=== PATIENT | female | born 1930 | race African-American/Black ===

== ENCOUNTER 2018-12-31 18:37 | Inpatient (IN) | payer OTHER ==
[~2018-12-31] VITALS: Ht 162.6 cm; Wt 61.4 kg
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
[2018-12-31 18:54] VITALS: BP 178/76
[2018-12-31 20:04] LABS: ABSOLUTE NEUTROPHILS 4.2 thou/uL (1.4-8.2); BASOPHILS 0.7 % (0.0-2.0); EOSINOPHILS 1.7 % (0.0-3.0); HEMATOCRIT 40.8 % (37.0-47.0); HEMOGLOBIN 13.2 gm/dL (12.0-15.0); LYMPHOCYTES 21.3 % (24.0-44.0); MCHC 32.3 g/dL (28.0-37.0); MCV 89.9 fL (80.0-100.0); MONOCYTES 9.5 % (1.0-8.0); POLYS 66.8 % (36.0-66.0); RBC 4.54 mil/uL (4.20-5.00); RDW 14.5 % (10.5-14.5); WBC 6.3 thou/uL (4.0-11.0)
[2018-12-31 20:14] LABS: ANION GAP 9 mmol/L (7-16); BUN 23 mg/dL (7-18); CALCIUM 9.3 mg/dL (8.5-10.1); CHLORIDE 107 mmol/L (98-107); CO2 27 mmol/L (21-32); CREATININE 0.8 mg/dL (0.6-1.0); GLUCOSE 93 mg/dL (74-106); POTASSIUM 4.3 mmol/L (3.5-5.1); SODIUM 143 mmol/L (136-145)
[2018-12-31 20:27] LABS: ALBUMIN 3.1 g/dL (3.4-5.0); TOTAL BILIRUBIN 0.6 mg/dL (<0.1-1.0); TOTAL PROTEIN 6.3 g/dL (6.4-8.2)
[2018-12-31 20:35] LABS: URINE BILIRUBIN NEGATIVE (Negative); URINE BLOOD 2+ (Negative); URINE CLARITY CLEAR; URINE COLOR YELLOW; URINE GLUCOSE-RANDOM* NEGATIVE (Negative); URINE KETONES NEGATIVE (Negative); URINE NITRITE-REFLEX NEGATIVE (Negative); URINE PROTEIN (DIPSTICK) NEGATIVE (Negative); URINE SPECIFIC GRAVITY 1.015 (1.005-1.035); URINE UROBILINOGEN 0.2 E.U./dl (0.2-1.0)
[2018-12-31 20:39] LABS: MAGNESIUM 1.6 mg/dL (1.8-2.4); SGOT 12 U/L (15-37); SGPT 13 U/L (30-65)
[2018-12-31 20:47] LABS: TROPONIN-I <0.06 ng/mL (<0.06)
[2018-12-31 20:54] LABS: LARGE PLATELETS FEW; PLATELET COUNT 131 thou/uL (150-400); PLATELET ESTIMATE DECREASED
[2018-12-31 21:01] LABS: URINE LEUKOCYTES-REFLEX 2+ (Negative)
[2018-12-31 21:31] LABS: SQUAMOUS 0-3 Few /LPF (0-3); URINE WBC-REFLEX 6-15 Few /HPF (0-5)
[2018-12-31 21:32] LABS: AMORPHOUS URATES Few /LPF (None Seen); BACTERIA-REFLEX >30 Many /HPF (None Seen); CASTS None Seen /LPF (None Seen); CRYSTALS None Seen /LPF (None Seen); MUCUS 0-3 Light strn/LPF (None Seen); URINE RBC 3-10 Few /HPF (0-2)
[2018-12-31] MEDS ORDERED: LAMICTAL100 MG PO (21:35)
[2018-12-31] MEDS ORDERED: COZAAR 25 MG TA25 M1 PO (21:35)
[2018-12-31] MEDS ORDERED: MELATONIN5 M1 PO (21:36)
[2018-12-31] MEDS ORDERED: NAMENDA 10 MG T10 MG PO (21:36)
[2018-12-31] MEDS ORDERED: REMERON15 MG PO (21:37)
[2018-12-31] MEDS ORDERED: RISPERIDONE 00.25 M1 PO (21:37)
[2018-12-31] MEDS ORDERED: LOPERAMIDE 2 MG2 M1 PO (21:39)
[2018-12-31] MEDS ORDERED: VITAMIN D5000 UNIT PO (21:39)
[2018-12-31] MEDS ORDERED: ACIDOPHILUS1 EAC4 PO (21:40)
[2018-12-31] MEDS ORDERED: EAR WAX REMOVAL15 ML OT (21:42)
[2018-12-31 23:25] VITALS: BP 179/85
[2018-12-31 23:50] VITALS: BP 197/104
[2019-01-01 01:15] VITALS: BP 152/81
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
--- NOTE | 2019-01-01 03:05 | NUR ---
The pt. was noted clapping her hands in her room. She was sitting on the side of the bed, and asked and she said she had to go to the bathroom. She was noted weak, unsteady, going to the bathroom. The walker was placed in front of her and she did not use it walking around it. She walks unsteady, slow, with weakness. Gait belt used with assist of 1. When helping with her clothing, she was continent of urine (cloudy urine observed), she notably was scared of the environment and staff with her confusion (swinging towards staff initially), and slow assistance/explanation was provided and she was compliant with assistance and back to bed with assistance as well. She scored 65 on Fall Risk scale so chair alarm and yellow shirt will be used.
[2019-01-01 07:15] VITALS: BP 138/59
--- NOTE | 2019-01-01 07:51 | EKG ---
[place] [address] [facility] [place] [address] ELECTROCARDIOGRAM REPORT Name: FABRIZIO HERRERA Room #: [facility]- ADM IN M.R.#: [id number] Admission: 12/31/18 Attend Phys: Red Neely DO Discharge: Date of : [birth year] Report #: [id number] THIS REPORT FOR: //name// [facility] ED Test Date: 2018-12-31 Test Time: 19:20:15 Pat Name: FABRIZIO HERRERA Department: Room: [facility] Gender: F Yarn Sizer: MOLLY : 1930 Requested By: Boaz Carcamo Order Number: [id number] MD: Maynor Espitia Measurements Intervals [place] Rate: 65 P: -2 SD: 170 QRS: 34 QRSD: 96 T: 30 QT: 417 QTc: 434 Interpretive Statements Sinus rhythm Normal tracing No previous ECG available for comparison Electronically Signed On 01-01-2019 7:51:47 CDT by Maynor Espitia [email or web address] <ELECTRONICALLY SIGNED> By: Maynor Espitia MD, [facility] 01/01/19 0751 192 19 Maynor Espitia MD, FACC /EPI
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
--- NOTE | 2019-01-01 16:57 | NUR ---
OBSERVED TO BE VERY RESTLESS THIS AM-FIDGETING IN CHAIR-STOOD UP OUT OF WHEELCHAIR TRIGGERING ALARM. DIFFICULT TO REDIRECT APPEARS HAVE DIFFICULTY PROCESSIN INSTRUCTION/REASSURANCE AND REORIENTATION PROVIDED BY STAFF. MINIMALLY VERBAL WHEN ASKED QUESTIONS WILL STATE YES OR NO BUT OFFERS NO OTHER SIGNIFICANT RESPONSE. HYPERVIGILANT WATCHING STAFF AND [facility] [place] AND WILL PULL AWAY IF FEARFUL DURING AM PHYSICAL ASSESSMENT. REQUIRES SBA OF 1 STAFF GAIT IS NOTED TO BE UNSTEADY-DI ATTEND AM EXERCISE GROUP AND OBSERVED PEERS-AT 0945 CIGARETTE PACKING MACHINE OPERATOR IN DAYROOM WITHIN APPROX 10FEET OF PT ASSISTING A PEER WHEN SHE REPORTS FINDING PT SITTING ON FLOOR NEXT TO WC-PT UNABLE OR UNWILLING TO STATE WHAT HAPPENED. CHAIR ALARM DID SOUND-NO NOISE OR THUD OF ANY KIND HEARD BY CIGARETTE PACKING MACHINE OPERATOR-PT DENIES PAIN/DISCOMFORT -VS OBTAINED AND BP 131/74-P78. COCYX ,LOW BACK AREA ASSESSED AND NO NOTED REDNESS,ABRASIONS,BRUISING NOTED. ABLE TO MOVE ALL EXTREMETIES WITHOUT DISCOMFORT. IMMEDIATLY UPON SITTING BACK IN WC TRIED TO GET UP AGAIN-DR MARTINEZ CONTACTED-O RECEIVED AND LAP MICHAEL APPLIED. PT REMOVED LAP MICHAEL SEVERAL TIMES -MESSAGE LEFT FOR DAUGHTER/DPOA JAIME AND RETURN CALL RECEIVED AT APPROX 1200-INFORMED OF ABOVE-DAUGHTER REQUESTING PT BE [id number] TO AMBULATE ON OWN-DOES NOT WANT PRN SEOQUEL GIVEN-DR MARTINEZ CONTACTED OF DPOA CONCERN-ORDERS RECEIVED FOR CONSTANT OBSERVATION WHILE AWAKE
[2019-01-01 18:56] VITALS: BP 156/90
--- NOTE | 2019-01-01 19:48 | NUR ---
ORDER RECEIVED FOR CONSTANT OBSERVATION RECEIVED BY Avery SERRANO AT [id number] BEEN MONITORED 1;1 SINCE THIS TIME FOR CONTINUED RESTLESSNESS,POOR IMPULSE CONTROL AND REPEATED EFFORTS TO CRAWL OUT OF CHAIR,BED ETC. REMOVING LAB BELT AND AT ONE POINT OBSERVED TO BE CRAWLING UNDERNEATH IT -PUTTING LEGS OF SIDE OF CHAIR AND TIPPING CHAIR BACKWARDS-TOILETING Q 1-2 HOURS DOES BECOME PHYSICALLY AGGRESSIVE WITH TOILETING PINCHING ARM OF NURSING STAFF HARD ENOUGH TO BREAK SKIN. NO NOTED FACIAL GRIMACING,MOANING ETC TO INDICATE PHYSICAL PAIN AND DENIES IT WHEN QUESTIONED. MINIMAL RESPONSE TO REPEATED EFFORTS TO REASSURE/REORIENT. TAKES PO FLUIDS WITH ENCOURAGEMNT AND FLUIDS OFFERED FREQUENTLY
--- NOTE | 2019-01-01 22:34 | NUR ---
ASSUMED CARE OF THE PT AT 1914 PM. ALERT ET ORIENTED X 2. MAKES NEEDS KNOWN. THE PT HAS BEEN HITTING AT STAFF, KICKING AT STAFF, BIT STAFF. CONTINUALLY TRYING TO CLIMB OUT OF THE BED. CALLED THE N.P. WHO WAS AIRPLANE PATROLLER AND RECEIEVED AN ORDER FOR ZYPREXA 2.5 MG IM, WHICH WAS GIVEN ORDERED. THE PT WAS ASSISTED TO BED, CONTINUES TO TRY TO GET OUT OF BED, SHE WAS ASSISTED BACK UP INTO THE WHEELCHAIR, BROUGHT OUT TO THE DAYROOM. REMAINS A 1:1 WHILE AWAKE.
--- NOTE | 2019-01-02 03:01 | NUR ---
THE PT WAS LAID DOWN IN BED AND SHE FELL ASLEEP AT THAT TIME, WHICH WAS DONE AT 1;15 AM. BED ALARM WAS TURNED ON. RESP., EVEN, AND UNLABORED. DENIED ANY PAIN EARLIER IN THE SHIFT. REMAINS ON 12 MINUTE CHECKS FOR HER SAFETY.
--- NOTE | 2019-01-02 10:19 | NUR ---
HAS BEEN UP WITH 1:1 SITTER SINCE ABOUT 0900, SHE IS IN W/C, SHE IS CALM AND COOPERATIVE WITH MEAL, SHE WAS FED BY SITTER SHE WOULD NOT EAT. MNEDICATIONS CRUSHED AND PLACED IN PUDDING SHE SOON SPIT THEM OUT INTO A [place], SHE DOES NOT APPEAR RESTLESS THIS A.M. AND HAS BEEN COOPERATIVE WITH CARES THIS A.M., CONTINUE TO MONITOR AND ASSIST WITH 1:1 OBSERVATION FOR SAFETY AND CARE.
[2019-01-02 10:39] VITALS: BP 183/87
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
[2019-01-02 19:21] VITALS: BP 153/91
--- NOTE | 2019-01-03 02:40 | NUR ---
ASSUMED CARE OF PATIENT AT APPROXIMATELY 1915, THIS RN HAD VERY LITTLE INTERACTION WITH PATIENT, RIGHT AFTER SHIFT CHANGE THIS NURSE DID A RAPID ASSESSMENT OF PATIENT SHE WAS REQUESTING TO GO TO BED. ONE TO ONE SITTER WAS WITH PATIENT AT ALL TIMES. WHEN THIS RN WAS ADMINISTERING MEDICATIONS SHE DID OPEN EYES TO MY VOICE AND WAS COOPERATIVE WITH MEDICATION ADMIN. SHE SPOKE 3-4 LINES OF SPEECH, THAT WAS WORD SALAD LIKE, AND NOT SENSICAL. BLE EDEMA OBSERVED, NO S/S OF ACUTE DISTRESS. PATIENT DID NOT VERBALIZE PAIN. NURSING WILL MAINTAIN ALL PRECAUTIONS TO ENSURE SAFETY AND KEEP PATIENT ON ONE TO ONE WHILE AWAKE ORDERED.
[2019-01-03 08:04] VITALS: BP 104/48
--- NOTE | 2019-01-03 10:20 | NUR ---
UP IN W/C SHE IS ALERT BUT CONFUSED SHE IS ORIENTED TO HER NAME ONLY, SHE IS CALM THIS A.M. AND HAS 1:1 SITTER WITH HER, SHE IS SOMEWHAT DROWSY, SHE WAS BEING FED HER MEAL BUT ATE POORLY FOR BREAKFAST, SHE SPEAKS WITH WORD SALAD, SHE DID TAKE HER MEDICATION THIS MORNING WITH ICE CREAM. CALL PLACED TO FOR UA RESULTS. IGNACIA TO MONITOR FOR BEHAVIORS AND SAFETY, REMIANS ON 1:1 FOR SAFETY.
--- NOTE | 2019-01-03 14:56 | NUR ---
1455: Dr. Marinelli notified of UA results/culture results. to initiate ABT order.
[2019-01-03 20:05] VITALS: BP 138/55
--- NOTE | 2019-01-04 00:23 | NUR ---
ASSUMED CARE AT 1915, PATIENT IS ALERT AND ORIENTED X1-2. THIS NURSE HAS HAD SMALL INTERACTIONS WITH PATIENT PATIENT WAS REQUESTING TO GO TO BED AT TIME OF SHIFT CHANGE. DURING THIS BRIEF INTERACTION MEDS WERE GIVEN WITH APPLESAUCE THAT PATIENT TOOK WITH NO ISSUES. SHE STATED 'IM DOING GOOD' WHEN ASKED. EYES CLOSED AND PATIENT TURNED THE OTHER DIRECTION. THIS NURSE CONCLUDED ONE TO ONE CONVERSATION. PT. DID HOWEVER LET THIS RN PHYSICALLY ASSESS PATIENT. NURSING WILL MAINTAIN ALL PRECAUTIONS TO ENSURE SAFETY AT ALL TIMES.
[2019-01-04 07:33] VITALS: BP 110/54
[2019-01-04 08:00] VITALS: BP 110/54
--- NOTE | 2019-01-04 08:59 | NUR ---
ATTEMPTING TO GIVE PT HER MEDICATION CRUSHED, PT SPIT OUT MED AND SAID IT TASTED BAD.
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
--- NOTE | 2019-01-04 11:30 | NUR ---
PT STATED SHE WILL TAKE MEDS IN APPLESAUCE NEXT TIME.
--- NOTE | 2019-01-04 11:32 | NUR ---
ADM HALDOL 3MG IM TO LEFT DELTOID DUE TO REFUSING RISPIRADOL PER DR. SINHA.
[2019-01-04 17:32] VITALS: BP 177/106
--- NOTE | 2019-01-04 17:32 | NUR ---
PT DIDN'T WANT TO TAKE PUDDING WITH BP MED IN IT. PT STATED SHE WOULD GET SICK IF SHE TOOK IT. PT DID TAKE MED.
[2019-01-04 19:30] VITALS: BP 119/58
--- NOTE | 2019-01-05 03:33 | NUR ---
UP IN DAY ROOM. REPORTED THAT SHE WAS AGRESSIVE TODAY. CONFUSED BUT COOPERATIVE WITH STAFF. 1:1 WHILE AWAKE. TOOK HS MEDS WITH CHOCOLATE ICE CREAM, W/O PROBLEM. SETTLED INTO BED AND HAS SLEPT WELL TO THIS POINT.
[2019-01-05 07:37] VITALS: BP 146/78
[2019-01-05 12:31] LABS: URINE BILIRUBIN NEGATIVE (Negative); URINE BLOOD 2+ (Negative); URINE CLARITY CLEAR; URINE COLOR YELLOW; URINE GLUCOSE-RANDOM* NEGATIVE (Negative); URINE KETONES NEGATIVE (Negative); URINE NITRITE-REFLEX NEGATIVE (Negative); URINE PROTEIN (DIPSTICK) NEGATIVE (Negative); URINE SPECIFIC GRAVITY 1.015 (1.005-1.035)
[2019-01-05 12:33] LABS: URINE LEUKOCYTES-REFLEX 2+ (Negative)
[2019-01-05 13:01] LABS: CASTS None Seen /LPF (None Seen); CRYSTALS None Seen /LPF (None Seen); SQUAMOUS >10 Many /LPF (0-3)
[2019-01-05 13:03] LABS: BACTERIA-REFLEX 1-9 Few /HPF (None Seen); URINE RBC 3-10 Few /HPF (0-2); URINE WBC-REFLEX 6-15 Few /HPF (0-5)
--- NOTE | 2019-01-05 14:09 | NUR ---
HAS BEEN ON 1;1 OBSERVATION SO FAR THIS SHIFT FOR CONTINUED UNSTEADY GAIT,RESTLESSNESS, IMPULSIVE BEHAVIOR AND RECENT HISTORY OF FALLS. MINIMAL VERBAL RESPONSES DURING AM ASSESSMENT AND 1;1 INTERACTION WITH THIS RN. SPEECH IS SOFT,MUMBLED AND DIFFICULT TO UNDERSTAND-WILL RESPOND YES OR NO-ORIENTED TO NAME ONLY. DOES REQUIRE ASSIST IN EATING FROM 1;1 STAFF SHE WAS ATTEMPTING TO EAT HER MASHED POTATOES WITH FINGERS. DID TELL STAFF THAT SHE HAD TO URINATE AND HAS BEEN CONTINENT SO FAR THIS SHIFT-UA COLLECTED PER MD ORDER AND SENT TO LAB. BP 146/78 PRIOR TO AM MEDS-TAKES MEDS CRUSHED IN ICE CREAM. CLONIDINE PATCH APPLIED PER ORDER. AMBULATES LONG DISTANCES IN HALLWAY WITH SBA X1 AND ROLLER WALKER-IS FORWARD LEANING AND BENT AT THE WAIST WHEN AMBULATING.
--- NOTE | 2019-01-05 18:09 | NUR ---
ORDER RECEIVED TO STRAIGHT CATH FOR URINE CULTURE-COMPLETED AT APPROX 1700 PT WAS AGITATED DURING CATH PROCESS AND DOES C/O "BOTTOM HURTING" IMMEDIATLY AFTER CATH PERFORMED. TYLENOL 625MG GIVEN PO PRN FOR ABOVE REPORTED AND DID APPEAR MORE COMFORTABLE APPROX 45 MIN AFTER RECEING. 2+ PEDAL EDEMA NOTED IN FEET BILAT-IS NOT WARM TO TOUCH-PT DENIES PAIN TO EXTREMETIES. ATTEMPTED TO LAY DOWN X2 THIS PM -RESTLESS-CLIMBING OVER RAILS OF BED AND WILL NOT REMAIN IN BED-BROUGHT TO DAYROOM AND DOES APPEAR CALMER. ATTEMPTED TO ELEVATE FEET IN RECLINER BUT PT BECAME MORE RESTLESS/AGITATED WHEN PLACED IN RECLINING POSITION. FOLLOW UP BP AT 1700 159/79-PM LOSARTAN GIVEN CRUSHED IN ICE CREAM. DID VOID APPROX 150 CC PRIOR TO CATH FOR SPECIMIN COLLECTION-BLADDER EMPTIED AND ONLY 50 CC RESIDUAL NOTED.
[2019-01-05 18:21] VITALS: BP 148/78
[2019-01-05 19:32] VITALS: BP 157/92
--- NOTE | 2019-01-05 19:39 | NUR ---
[facility]ARE @ 19:15. ALERT, IN W/C ORIENTED TO SELF ONLY. COOPERATED WITH ASSESSMENT, HRRR, LUNGS CTA, ABD BS [id number]. TALKS TO PEERS AND STAFF, BUT THOUGHTS AND SPEACH ARE DISORGANIZED AND RANDOM. WILL CONTINUE TO MONITOR. Q 12 MINUTES FOR PATIENT SAFETY.
--- NOTE | 2019-01-05 22:21 | NUR ---
PATIENT TRANSFERRED FROM W/C TO BED X2 ASSIST. PATIENT RESISTED CARE. ASKED REPEATEDLY ABOUT HER DAUGHTER. REMINDED THAT HER DAUGHTER HAD BEEN HERE VISITING THIS EVENING, AND SHE AGREED THAT SHE REMEMBERED SEEING DAUGHTER. IN BED SLEEPING, EYES CLOSED, RESPIRATIONS EVEN AND UNLABORED. WILL CONTINUE TO MONITOR Q 12 MINUTES FOR PATIENT SAFETY. BED IN LOW POSITION, BED ALARM SET.
[2019-01-06 00:17] VITALS: BP 157/92
--- NOTE | 2019-01-06 06:02 | NUR ---
SLEPT 8.4 HOURS OVERNIGHT
--- NOTE | 2019-01-06 06:38 | NUR ---
BLADDER SCAN 192 @ 0530. URINATED 200CC @ 06:30
[2019-01-06 09:32] VITALS: BP 193/89
--- NOTE | 2019-01-06 14:46 | NUR ---
RESTLESS AT TIMES THROUGHOUT SHIFT CALLING OUT FOR HELP AND ATTEMPTING TO GET UP-HAS HAD FREQUENT POSITION CHANGES GOING FROM WHEELCHAIR WITH LAP MICHAEL TO RECLINBER TO COUCH IN DAYROOM. USING ROLLER WALKER ANMD SBA X1 TO GET TO AND FROM BR AND HAS REMAINED CXONTINENT [id number] SHIFT. POST VOID BLADDER SCAN COMPETED AT 1130 AND APPROX 70 CC IN BLADDER VIA SCAN. [id number] GIVENPO PRN AT 1300 FOR REPORTED CO PAIN "ALL OVER" DOES TAKE MEDS CRUSHED IN ICE CREAM. ENJOYED SINGING NURSERY [employer] SONGS WITH STAFF AND DID SHOW SOME [place]ES SMILING/CONVERAation DURING THIS INTERACTION. OTHERWISE AFFFECT HAS BEEN FLAT AnD WILL RESPOND MINIMALLY TO YES/NO QUESTIONS. ORIENTED TO NAME ONLY-REQUIRES ASSIST TO STAFF TO FEED SELF BUTY APPETITE GOOD
--- NOTE | 2019-01-06 18:09 | NUR ---
ORINENTED TO NAME ONLY PLEASANT AND COOPERTIVE. DENIES PAIN. GOOD APPETITE FOR DINNER, ATE DINNER IN DINNING ROOM.
[2019-01-06 19:26] VITALS: BP 155/97
[2019-01-06 23:33] VITALS: BP 144/80
--- NOTE | 2019-01-07 04:28 | NUR ---
PATIENT UP IN DINING ROOM TILL BEDTIME TONIGHT. SHE SAT IN HER WC WITH CHAIR ALARM ON. SHE SAT AWAY AT A TABLE VISITING WITH A [employer]ELOP[employer] CONSULTANT. UNORGANIZED THOUGHTS. PLEASANT, SMILING, COOPERATIVE, WITH TENDANCY TO BE PARANOID AT TIMES OF OTHERS INTENTIONS. PATIENT TOOK MEDS AND WAS IN BED AROUND 2100. AT 0400 PATIENT BEGAN SITTING UP IN BED AND LOOKING IF SHE WAS TRYING TO GET OUT. E[employer] INDUSTRI[employer] DEVELOPMENT CONSULTANT AND MYSELF WENT TO TRY AND TOILET HER AND SHE BECAME COMBATIVE. PATIENT BRIEF STILL ON IN PLACE AND DRY. WORKED WITH HER FOR 20 MINUTES TO TRY AND GET HER TO BSC WITHOUT SUCCESS. UNABLE TO BLADDER SCAN HER D/T BECOMES COMBATIVE. PATIENT DID LAY BACK DOWN WITHOUT A FIGHT AND WENT BACK TO SLEEP. BED ALARM ON AND BED IN LOW POSITION. WILL TRY A LITTLE LATER TO GET HER UP TO TOILET. OVERALL, SHE HAS SLEPT SOUND ALL NIGHT.
[2019-01-07 08:33] VITALS: BP 145/74
--- NOTE | 2019-01-07 11:10 | NUR ---
0700: Report rec from noc shift, care assumed.
[2019-01-07 20:09] VITALS: BP 150/86
--- NOTE | 2019-01-08 04:23 | NUR ---
ASSUMED CARE OF PATIENT AT APPROXIMATELY 1915, UPON INTERACTION WITH PATIENT SHE WAS OUT IN THE DAY ROOM, WITH A NEAT APPEARANCE INTERACTING WITH STAFF. SHE APPEARED WITH A EUTHYMIC AFFECT AND LABILE MOOD. THIS NURSE HAD MINIMAL INTERACTIONS WITH PATIENT SHE WAS ABLE TO TELL ME SHE WAS 'GOOD.' SHE TOOK ALL MEDS CRUSED IN CHOCOLATE ICE CREAM. SHE RETIRED TO HER BED EARLY AND DOES NOT APPEAR TO BE IN DISTRESS. NURSING WILL MAINTAIN ALL PRECAUTIONS TO ENSURE SAFETY AT ALL TIMES.
[2019-01-08 08:54] VITALS: BP 142/81
--- NOTE | 2019-01-08 08:54 | NUR ---
0715: Report rec from noc shift, care assumed. 0730: Sitting in DR in w/c, alert, oriented to name only. Staff assisted with a.m. meal, pt observed playing in food when instructed to eat meal, appetite fair. Takes meds crushed in pudding, resistant to taking meds, drinks regular fluids w/o difficulty. Lap ella in place for safety and to remind pt to not stand w/o assistance.
--- NOTE | 2019-01-08 10:50 | NUR ---
Nutrition: pt admitted with major neurocognitive disorder, depression, dementia. Seen for LOS. Attempted interview, pt very confused. No weight hx. Two weights taken around time of admit, 122# and 135#. Pt eats well with nsg feeding her, requires much cueing. 75-100% of meals recently recorded. Nsg requests ensure be offered, will add BID. Carb controlled diet ordered but no hx of DM and not checking BG levels. Liberalize diet to regular. On vitamin D supplementation. Place pt as low nutrition risk.
[2019-01-08 21:49] VITALS: BP 162/99
--- NOTE | 2019-01-08 23:25 | NUR ---
ASSUMED CARE OF THE PT AT 1914 PM. ALERT ET ORIENTED X 2. THE PT WAS SITTING IN A WHEELCHAIR WHEN THIS LOGISTICIAN CAME ON DUTY. HEART RATE REGULAR. LUNGS CLEAR BILATERALLY. +BS HEARD IN ALL 4 QUADRANTS. ABD SOFT ET NONTENDOR. +PP BILATERALLY. HER DAUGHTER WAS HERE WHEN THIS LOGISTICIAN FIRST CAME ON DUTY. IT TAKES THE ASSISTANCE OF 2 TO PUT HER IN BED, SHE TRIES TO HIT AND SCRATCH PEOPLE. REMAINS ON 12 MINUTE CHECKS FOR THE PT'S SAFETY.
[2019-01-09 07:20] VITALS: BP 145/76
[2019-01-09 08:51] LABS: HEMATOCRIT 44.7 % (37.0-47.0); HEMOGLOBIN 14.1 gm/dL (12.0-15.0); MCH 28.5 pg (26.0-34.0); MCHC 31.5 g/dL (28.0-37.0); MCV 90.5 fL (80.0-100.0); RBC 4.93 mil/uL (4.20-5.00); RDW 14.5 % (10.5-14.5); WBC 4.6 thou/uL (4.0-11.0)
[2019-01-09 09:04] LABS: CALCIUM 9.5 mg/dL (8.5-10.1); CREATININE 0.8 mg/dL (0.6-1.0); POTASSIUM 4.2 mmol/L (3.5-5.1)
--- NOTE | 2019-01-09 14:06 | NUR ---
HAS BEEN VISIBLE IN DAYROOM WITH PEERS THROUGHOUT SHIFT- APPEARS LESS ANXIOUS COMPARED TO EARLIER IN WEEK(FRIDAY,FRIDAY) EVIDENCED BY BEING ABLE TO SIT FOR LONGER PERIODS OF TIME TO DO ACTIVITY,OR FINISH MEAL. REMAINS MINIMALLY VERBAL-ORIENTED TO NAME ONLY. DENIES PAIN/DISCOMFORT. COMPLIENT WITH TAKING MEDS CRUSHED IN ICE CREAM. VERY GOOD APPETITE-HAD 2 PORTIONS AT LUNCH AND AT APPROX 1300 REPORTED STOMACH UPSET/INDIGESTION. MYLANTA 15CC PO PRN FOR ABOVE REPORT WITH NO ADDITIONAL COMPLAINTS REPORTED. REMAINS IN LAP MICHAEL FOR HX OF FALLS-POOR INSIGHT RE MOBILITY AND ATAXIA-ASSISTED TO AMBULATE SHORT DISTANCES IN HALLWAY AND IS NOTED TO HAVE STOOPED FORWARD LEANING POSTURE AND WOULD HAVE FALLEN FORWARD WITHOUT STAFF ASSIST.
[2019-01-09 19:29] VITALS: BP 150/65
--- NOTE | 2019-01-10 04:20 | NUR ---
THIS NURSE ASSUMED CARE AT APPROXIMATELY 1915, SHE HAS BEEN OUT IN THE DAY ROOM WELL SELF PROPELLING HER WHEELCHAIR ACROSS THE UNIT. DURING ONE TO ONE CONVERSATION SHE APPEARS TO BE SHOWING MORE EXPRESSION SUCH SMILING AND ANSWERING APPROPRIATELY TO QUESTIONS. SHE REQUESTED ICE CREAM FOR SNACK AND ATE APPROXIMATELY 100%, WELL GRABBING FOR IT WHEN SHE WANTED MORE. SHE WAS ABLE TO TELL THIS NURSE 'IM GOOD.' SHE DID DENY SI HI SH WELL HALLUCINATIONS. NURSING WILL MAINTAIN ALL PRECAUTIONS TO ENSURE SAFETY AT ALL TIMES.
[2019-01-10 08:00] VITALS: BP 123/77
[2019-01-10 09:46] VITALS: BP 123/77
--- NOTE | 2019-01-10 09:50 | NUR ---
PT IN W/C WITH SABA RODRIGUEZ. PT NOT VERBAL SOCALLY. PT DENIES ANY CONCERNS TODAY. PT ABLE TO TAKE MEDS IN ICE CREAM. PT FED SELF ICE CREAM AFTER MED ADM. PT DENIES ANY PAIN. PT LUNGS CLEAR. PT CAN WALK WITH BATHROOM BREAKS. PT NEEDS ASSISTANCE WITH ADL'S.
[2019-01-10 17:00] VITALS: BP 162/86
--- NOTE | 2019-01-10 18:26 | NUR ---
PT TAKING MEDS IN ICE CREAM OK. PT WHEELS SELF IN W/C, PT ATTENDING GROUPS.
[2019-01-10 20:04] VITALS: BP 137/77
--- NOTE | 2019-01-11 00:01 | NUR ---
ASSUMED CARE OF PATIENT AT APPROXIMATELY 1915, SHE IS ALERT AND ORIENTED X1-2. HER SPEECH HAS BEEN MORE CLEAR, ABLE TO MAKE NEEDS KNOWN, EVIDENCED BY THE FOLLOWING DAYS OF CARE AND NOTE HX. SHE APPEARS WITH AN APPROPRIATE AFFECT, LESS EXIT SEEKING OBSERVED AND FOLLOWS DIRECTIONS BY STAFF. MED PASS WAS DIFFICULT PATIENT WAS OBSERVED TO BE RESTING AND NEEDED TO BE AROUSED SEVERAL TIMES FOR PATIENT TO TAKE HER MEDICATION. SHE WOULD NOT DESCRIBE IF SHE WAS SUICIDAL OR HOMICIDAL, DEPRESSED OR ANXIOUS BUT WILL CONTINUE TO ASSESS. SHE DID NOT REPORT ANY MEDICAL CONCERNS WITH NO S/S OF DISTRESS. NURSING MAINTAIN ALL PRECAUTIONS TO ENSURE SAFETY AT ALL TIMES.
[2019-01-11 07:47] VITALS: BP 133/67
[2019-01-11 12:53] VITALS: BP 133/67
--- NOTE | 2019-01-11 13:00 | NUR ---
ASSUMED CARE AT 0700 THIS MORNING. PT. UP IN CHAIR ON THE UNIT. SHE IS TALKING TO STAFF UPON APPROACH ONLY. SHE IS EATING WELL. TOOK HER MEDS CRUSHED AND IN APPLESAUCE. SHE IS NOT FOND OF APPLESAUCE. NEXT TIME WILL USE SOMETHING ELSE NEXT TIME. ATTENDED MORNING GROUP.
[2019-01-11 20:29] VITALS: BP 144/78
[2019-01-11 20:30] VITALS: BP 144/78
--- NOTE | 2019-01-12 01:35 | NUR ---
ASSUMED CARE AT 1915, PATIENT IS IN THE DAY ROOM DURING ONE TO ONE WITH PATIENT. SHE IS ALERT AND ORIENTED X1-2, SHE DID REACH OUT TO THIS NURSES ARM AND BECAME TEARFUL AND CRYING AND ASKING WHERE HER DAUGHTER WAS AND THAT SHE NEEDED TO GO SEE HER. SHE WAS INCONSOLABLE AT THIS TIME. SHE DID MANAGE TO CALM DOWN ON HER OWN. SHE DID NOT REPORT SI HI WELL HALLUCINATIONS AND DID NOT NOTICE ANY INTERNAL STIMULI. SHE DID NOT REPORT MEDICAL CONCERNS WITH NO S/S OF DISTRESS. NURSING WILL MAINTAIN Q12 CHECKS TO ENSURE SAFETY AT ALL TIMES.
[2019-01-12 09:45] VITALS: BP 120/70
[2019-01-12 12:15] VITALS: BP 120/70
--- NOTE | 2019-01-12 12:41 | NUR ---
ASSUMED CARE AT 0700 THIS MORNING. PT. UP IN W/C ON THE UNIT. ATE WELL FOR BREAKFAST AND FAIR FOR LUNCH. SHE NEEDS ENCOURAGEMENT BY STAFF TO EAT. STAFF DOES ASSIST HER IN EATING. SHE ATTENDED MORNING GROUP. PT. TOOK HER MEDICATIONS ORDERED IN ICE CREAM. STAFF ASSIST HER IN EATING MEALS. SHE INTERACTS WITH STAFF UPON APPROACH ONLY. SHE CONTINUES TO BE CONFUSED. HER DAUGHTER WAS HERE FOR VISITING AT 10:45 A.M. SHE SPOKE WITH THIS RN ABOUT HOW HER MOTHER WAS DOING. SHE VERBALIZED UNDERSTANDING.
[2019-01-12 19:34] VITALS: BP 183/85
--- NOTE | 2019-01-13 05:07 | NUR ---
ASSUMED CARE @ 19:15, IN DAY ROOM SITTING IN W/C. TOOK MEDS CRUSHED IN PUDDING, SLEEPING WELL THROUGHOUT THE NIGHT. BED IN LOW POSITION, BED ALARM SET, WILL CONTINUE TO MONITOR Q 12 MINUTES FOR PATIENT SAFETY.
--- NOTE | 2019-01-13 06:35 | NUR ---
8.6 HOURS OF SLEEP
--- NOTE | 2019-01-13 16:07 | NUR ---
0800 Sitting at breakfast without s/o distress. Compliant with care and obeys simple commands. Eating with assist. Took meds without difficulty without s/o distress. Unable to assess SI/HI. 1400 Attending group. Sitting in dining room without s/o distress. Color pink. Toileting with the assist of LAG SCREWER.
--- NOTE | 2019-01-13 16:24 | NUR ---
Ham spoke with pt's daughter Cornel [phone] and she reported that [facility] and she would be meeiting with the new management and other family members saad at 5:30 to discuss what is happening with the continued stay. She will call with this information tomorrow.
[2019-01-13 19:14] VITALS: BP 158/88
--- NOTE | 2019-01-14 04:54 | NUR ---
ALERT.ABLE TO TAKE HER MEDICATIONS CRUSHED AND WITH APPLE SAUCE.SLEPT MOST OF THE NIGHT.CHECKED Q 12 MINUTES FOR SAFETY.WILL MONITOR AND CONTINUE PLAN OF CARE.
[2019-01-14 10:23] VITALS: BP 161/84
[2019-01-14] MEDS ORDERED: COZAAR 50 MG TA50 M1 PO (10:57)
[2019-01-14] MEDS ORDERED: RISPERDAL 1 MG T1 MG PO (10:59)
[2019-01-14] MEDS ORDERED: VITAMIN B-12500 MCG PO (11:00)
[2019-01-14] MEDS ORDERED: ERGOCALCIF50000 UNIT PO (11:01)
--- NOTE | 2019-01-14 11:05 | NUR ---
0700: Report rec from noc shift, care assumed. [id number]: Sitting in DR in w/c, alert, oriented to name only, cooperative with staff, requires direction and assistance with eating meals, takes meds crushed in pudding, tolerates well. Attends 0900 therapy group, minimal participation noted. Plans for dc this p.m. with family.
--- NOTE | 2019-01-14 11:38 | NUR ---
Nutrition: Early follow up. Per nsg notes, pt oriented to name only. Plans to discharge w/ family this p.m. per EMR. Did not see pt, chart reviewed. Continues on diet order of finger foods; staff assists w/ feeding. PO intake incredibly high - 88% meal average per the last 5 days. Recent BM 01/12. Continues to receive folic acid supplement as well as vitamin B12 and weekly ergocalciferol. No new nutrition needs identified. Low nutrition risk.
[2019-01-14 19:44] VITALS: BP 137/82
--- NOTE | 2019-01-15 00:06 | NUR ---
PT SITTING IN W/C WITH ALARM AND LAP BELT. PT VISITED WITH DAUGHTER AT BEGINING OF SHIFT. PT COMPLIANT WITH TWO PUDDINGS AND HS MEDS. PT HAS BLUNTED AFFECT, GOOD EYE CONTACT, CLEAR SPEECH WHEN TALKING WITH STAFF. PT ABLE TO VERBALIZE WHEN NEEDING TO USE RESTROOM BUT ALSO INCONTINENT. PT PICKING AT ITEMS ON THE FLOOR AND FURNITURE. AFTER 2099 PT RESTLESS IN W/C MOVING FURNITURE, YELLING OUT VERSUS SOFT TALKING. DURING ADL CARES PT BECAME COMBATIVE HITTING, KICKING, GRABBING, YELLING. PT HAD PRN. PT INITIALLY RESISTIVE TO LAYING IN BED VERSUS SITTING, ONCE COMPLIANT PT DID FALL ASLEEP.
--- NOTE | 2019-01-15 05:22 | NUR ---
pt resistive hitting and kicking and grabbing with am toileting care.
--- NOTE | 2019-01-15 15:43 | NUR ---
SW met with rep for and he recommeded that pt have a 24 special needs child caregiver if she was to return to the [place]. [facility] also met wiht pt and they stated that they would admit her. They stated that they would contact the [facility] to confirm. Pt's dght also asked that the referral be sent to [facility] [place]. Dght called later and wanted clarification about the recomendation for skilled. DR bah assisted wiht this clarification by talking to pt's dght and [facility]. At the end of this conversation pt's dght reported that she would be picking up her mother at 6pm. SW reported this to nursing. Pt requires memory care
--- NOTE | 2019-01-15 18:12 | NUR ---
0700: Report rec from noc shift, care assumed. [id number]: To via w/c, alert, oriented to name only. Feeds self with set up assist. Takes meds crushed in applesauce. Appetite good, smiles at staff, cooperative with care, but attempts to resist. Attended 0900 therapy group, minimal participation noted. 1745: Report called to [facility], pts dtr to transport pt to facility. 1800: DC to private vehicle, accomp by dtr Cornel. Personal belongings, scripts and discharge instructions, summary and medication list sent with pt and family.
== END 2019-01-15 18:00 | DRG 57 ==
LOC: ER 18:37 → SBH 23:05 → EROBS 23:05 → SBH 23:25
PROVIDERS: Emergency Medicine; Internal Medicine; ADMIT Psychiatry & Neurology Psychiatry
DX: G30.9 Alzheimer's disease, unspecified (principal); F01.51 Vascular dementia, unspecified severity, with behavioral disturbance; F02.81 Dementia in other diseases classified elsewhere, unspecified severity, with behavioral disturbance; N39.0 Urinary tract infection, site not specified; I10 Essential (primary) hypertension; F32.9 Major depressive disorder, single episode, unspecified; G47.00 Insomnia, unspecified; B96.20 Unspecified Escherichia coli [E. coli] as the cause of diseases classified elsewhere; E55.9 Vitamin D deficiency, unspecified; Z88.6 Allergy status to analgesic agent
CPT/HCPCS: 10880